=== PATIENT | male | born 1965 | race Caucasian/White ===

== ENCOUNTER 2018-01-09 12:50 | Inpatient (IN) | payer OTHER ==
[2018-01-09 14:37] VITALS: BMI 24.3
--- NOTE | 2018-01-09 16:04 | HP ---
Admission [facility] Chief Complaint: i need help to stop using heroin Allergies/Adverse Reactions: Allergies Allergy/AdvReac Type Severity Reaction Status Date / Time No Known Allergies Allergy Verified 01/09/18 15:37 History of Present Illness: this 52 years old male with heroin dependence seeking help, patient is on suboxone maintenance 8 mgs/2 mgs sl film last medicated 5 days ago patient has neuropathy on medication had fx of left foot treated at [facility] had splint on left foot and crutches had been in rehab discharged 01/04/18 Exam Limitations: No Limitations - Ebola screening Have you traveled outside of the country in the last 21 days: No Have you had contact with anyone from an Ebola affected area: No Have you been sick,other than usual withdrawal symptoms: No Do you have a fever: No - Review of Systems Constitutional: No Symptoms Reported EENT: reports: No Symptoms Reported Respiratory: reports: No Symptoms reported Cardiac: reports: No Symptoms Reported GI: reports: No Symptoms Reported Musculoskeletal: reports: No Symptoms Reported Integumentary: reports: No Symptoms Reported Neuro: reports: No Symptoms reported Endocrine: reports: No Symptoms Reported Hematology: reports: No Symptoms Reported Psychiatric: reports: No Sypmtoms Reported, Judgement Intact, Mood/Affect Appropiate, other (ptsd) Patient History - Patient Medical History Hx Anemia: No Hx Asthma: No Hx Chronic Obstructive Pulmonary Disease (COPD): No Hx Cancer: No Hx Cardiac Disorders: No Hx Congestive Heart Failure: No Hx Hypertension: No Hx Hypercholesterolemia: No Hx Pacemaker: No HX Cerebrovascular Accident: No Hx Seizures: No Hx Dementia: No Hx Diabetes: No Hx Gastrointestinal Disorders: No Hx Liver Disease: No Hx Genitourinary Disorders: No Hx Sexually Transmitted Disorders: No Hx Renal Disease (ESRD): No Hx Thyroid Disease: No Hx Human Immunodeficiency Virus (HIV): No (last 12/25 negative) Hx Hepatitis C: No Hx Depression: No Hx Suicide Attempt: No Hx Bipolar Disorder: No Hx Schizophrenia: No Other Medical History: ptsd,no suicidal,no homicidal - Patient Surgical History Past Surgical History: No - PPD History Previous Implant?: Yes Documented Results: Negative w/o proof Implanted On Prior [facility] Admission?: No PPD to be Administered?: Yes - Smoking Cessation Smoking history: Current every day smoker Have you smoked in the past 12 months: Yes Aproximately how many cigarettes per day: 20 Cigars Per Day: 0 Hx Chewing Tobacco Use: No Initiated information on smoking cessation: Yes 'Breaking Loose' booklet given: 01/09/18 - Substance & Tx. History Hx Alcohol Use: No Hx Substance Use: Yes Substance Use Type: Heroin Hx Substance Use Treatment: Yes (rehab dischrged 01/04/18) - Substances Abused Heroin Route: Injection Frequency: Daily Amount used: 8-9 bags Age of first use: 22 Date of Last Use: 01/08/18 Family Disease History - Family Disease History Family History: Denies Admission Physical Exam [facility] - Vital Signs Vital Signs: Vital Signs - 24 hr 01/09/18 14:29 Temperature 98 F Pulse Rate 92 H Respiratory 20 Rate Blood Pressure 118/58 - Physical General Appearance: Yes: Within Normal Limits HEENTM: Yes: Within Normal Limits, Normal ENT Inspection, BREANN Respiratory: Yes: Lungs Clear, Normal Breath Sounds, No Respiratory Distress Neck: Yes: Within Normal Limits, Supple, Trachea in good position Breast: Yes: Within Normal Limits Cardiology: Yes: Regular Rhythm, Regular Rate, S1, S2 Abdominal: Yes: Within Normal Limits, Normal Bowel Sounds, Non Tender, Flat, Soft Genitourinary: Yes: Within Normal Limits Back: Yes: Muscle Spasm Musculoskeletal: Yes: Back pain, Muscle Pain Extremities: Yes: Within Normal Limits (left foot in splint non weight bearing crutches walking) Neurological: Yes: emergency medical service coordinator II-XII NML intact, Fully Oriented, Alert, Motor Strength 5/5 Integumentary: Yes: Dry Lymphatic: Yes: Within Normal Limits - Diagnostic (1) Opioid dependence Current Visit: Yes Status: Acute (2) Encounter for monitoring Suboxone maintenance therapy Current Visit: Yes Status: Acute (3) Foot fracture, left Current Visit: Yes Status: Acute (4) Crutches as ambulation aid Current Visit: Yes Status: Acute (5) PTSD (post-traumatic stress disorder) Current Visit: Yes Status: Acute (6) Neuropathy Current Visit: Yes Status: Acute (7) Nicotine dependence Current Visit: Yes Status: Acute Cleared for Admission S - Detox or Rehab Claeared for Rehab Admission: Yes [facility] Breath Alcohol Content Breath Alcohol Content: 0 Urine Drug Screen - Results Drug Screen Negative: No Urine Drug Screen Results: OPI-Opiates, OXY-Oxycodone Inpatient Rehab Admission - Initial Determination Are CD services needed?: Yes Free of communicable disease: Yes Not in need of hospitalization: Yes - Rehab Admission Criteria Previous failed treatment: Yes Poor recovery environment: Yes Comorbidities: Yes Lacks judgement: No Patient is meeting Inpatient Rehab admission criteria:: Yes
[2018-01-09] MEDS ORDERED: LOPERAMIDE HCL 2 MG CAPSULE PO PRN (16:16)
[2018-01-09] MEDS ORDERED: hydrOXYzine PAMOATE 50 MG CAPSULE (FP) PO PRN (16:16)
[2018-01-09] MEDS ORDERED: P-EPHED 60MG/TRIPROLIDI 2.5MG TABLET PO PRN (16:16)
[2018-01-09] MEDS ORDERED: MAGNESIUM CITRATE 300 ML BOTTLE PO PRN (16:16)
[2018-01-09] MEDS ORDERED: MENTHOL/PHENOL 1 EACH UD MM PRN (16:16)
[2018-01-09] MEDS ORDERED: MAG HYDROX/AL HYDROX/SIMETH 30 ML UNIT-DOSE CUP PO PRN (16:16)
[2018-01-09] MEDS ORDERED: MAGNESIUM HYDROX 2400MG/30ML ORAL SUSPENSION 30 ML CUP PO PRN (16:16)
[2018-01-09] MEDS ORDERED: guaiFENesin/D-METHORPHAN HB 10 ML UNIT-DOSE CUPS PO PRN (16:16)
[2018-01-09] MEDS ORDERED: ACETAMINOPHEN 325 MG TABLET (FP) PO PRN (16:16)
[2018-01-09] MEDS ORDERED: TUBERCULIN PPD 5 TU/0.1ML VIAL ID ONE ×2 (19:07→22:24)
[2018-01-09] MEDS: GABAPENTIN 300 MG CAPSULE (FP) PO SCH ×2 (19:10→21:07)
[2018-01-09] MEDS: NICOTINE 21 MG/24 HOURS TOPICAL PATCH TD SCH (19:15)
[2018-01-09] MEDS: MIRTAZAPINE 15 MG TABLET (FP) PO SCH (21:06)
[2018-01-09] MEDS: THIAMINE HCL 100 MG TABLET (FP) PO SCH (21:07)
[2018-01-09] MEDS: cloNIDine HCL 0.1 MG TABLET PO SCH (21:44)
[2018-01-10] MEDS: GABAPENTIN 300 MG CAPSULE (FP) PO SCH ×3 (06:26→21:15)
[2018-01-10] MEDS: IBUPROFEN 400 MG TABLET (FP) PO PRN ×2 (06:26→13:04)
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
[2018-01-10] MEDS: NICOTINE 21 MG/24 HOURS TOPICAL PATCH TD SCH (10:09)
[2018-01-10] MEDS: cloNIDine HCL 0.1 MG TABLET PO SCH ×2 (10:09→21:15)
[2018-01-10] MEDS: PRENATAL VITAMINS W/ FOLIC ACID TABLET (FP) PO SCH (10:09)
[2018-01-10] MEDS: BUPRENORPHINE/NALOXONE 8 MG/2 MG FILM PACKET SL SCH (10:09)
[2018-01-10 16:02] LABS: HEMOGLOBIN 12.5 GM/dL (11.7-16.9); MCH 30.2 pg (25.7-33.7); MCHC 33.8 g/dl (32.0-35.9); MEAN CELL VOLUME 89.3 fl (80-96); MEAN PLT VOLUME 10.4 fl (7.5-11.1); PLATELET COUNT 167 K/MM3 (134-434); RBC 4.14 M/mm3 (4.00-5.60); RDW 13.6 % (11.9-15.9); WHITE BLOOD COUNT 6.4 K/mm3 (4.0-10.0)
[2018-01-10 16:32] LABS: CALCIUM 8.7 mg/dL (8.5-10.1); CHLORIDE 107 mmol/L (98-107); POTASSIUM 3.9 mmol/L (3.5-5.1); SODIUM 142 mmol/L (136-145)
[2018-01-10 16:39] LABS: ALBUMIN 3.5 g/dl (3.4-5.0); ALK PHOS 67 U/L (45-117); ANION GAP 7 (8-16); BILIRUBIN,TOTAL 1.8 mg/dL (0.2-1.0); BLOOD UREA NITROGEN 18 mg/dL (7-18); CO2 28 mmol/L (21-32); CREATININE 0.9 mg/dL (0.7-1.3); GLUCOSE,RANDOM 94 mg/dL (74-106); SGOT/AST 12 U/L (15-37); SGPT/ALT 17 U/L (12-78); TOT PROT 6.1 g/dl (6.4-8.2)
[2018-01-10] MEDS: MIRTAZAPINE 15 MG TABLET (FP) PO SCH (21:15)
[2018-01-10] MEDS: THIAMINE HCL 100 MG TABLET (FP) PO SCH (21:15)
[2018-01-11] MEDS: IBUPROFEN 400 MG TABLET (FP) PO PRN (06:19)
[2018-01-11] MEDS: GABAPENTIN 300 MG CAPSULE (FP) PO SCH ×3 (06:20→20:59)
--- NOTE | 2018-01-11 09:03 | EKG ---
Test Reason : Blood Pressure : / mmHG Vent. Rate : 085 BPM Atrial Rate : 085 BPM P-R Int : 138 ms QRS Dur : 096 ms QT Int : 388 ms P-R-T Axes : 065 077 059 degrees QTc Int : 461 ms NORMAL SINUS RHYTHM NORMAL ECG NO PREVIOUS ECGS AVAILABLE Confirmed by BRYAN HINKLE, CLAUDE ([id number]) on 01/11/2018 9:03:38 AM Referred By: Confirmed By:CLAUDE ADAMS MD
[2018-01-11] MEDS ORDERED: IBUPROFEN 600 MG TABLET (FP) PO PRN (09:55)
[2018-01-11] MEDS: NICOTINE 21 MG/24 HOURS TOPICAL PATCH TD SCH (10:04)
[2018-01-11] MEDS: BUPRENORPHINE/NALOXONE 8 MG/2 MG FILM PACKET SL SCH (10:04)
[2018-01-11] MEDS: cloNIDine HCL 0.1 MG TABLET PO SCH ×2 (10:04→20:59)
[2018-01-11] MEDS: PRENATAL VITAMINS W/ FOLIC ACID TABLET (FP) PO SCH (10:04)
[2018-01-11 19:21] LABS: URINE APPEARANCE CLEAR; URINE BILIRUBIN NEGATIVE (<2.0 mg/dL); URINE COLOR AMBER; URINE GLUCOSE (UA) NEGATIVE (NEGATIVE); URINE KETONE NEGATIVE (NEGATIVE); URINE LEUK ESTERASE NEGATIVE (NEGATIVE); URINE NITRITE NEGATIVE (NEGATIVE); URINE PROTEIN NEGATIVE (NEGATIVE); URINE UROBILINOGEN 4.0 E.U/dl mg/dL (0.2-1.0)
[2018-01-11] MEDS: THIAMINE HCL 100 MG TABLET (FP) PO SCH (20:59)
[2018-01-11] MEDS: MIRTAZAPINE 15 MG TABLET (FP) PO SCH (20:59)
[2018-01-12] MEDS: GABAPENTIN 300 MG CAPSULE (FP) PO SCH ×3 (06:03→21:05)
[2018-01-12] MEDS: PRENATAL VITAMINS W/ FOLIC ACID TABLET (FP) PO SCH (09:34)
[2018-01-12] MEDS: cloNIDine HCL 0.1 MG TABLET PO SCH ×2 (09:34→21:05)
[2018-01-12] MEDS: BUPRENORPHINE/NALOXONE 8 MG/2 MG FILM PACKET SL SCH (09:34)
[2018-01-12] MEDS: NICOTINE 21 MG/24 HOURS TOPICAL PATCH TD SCH (09:35)
[2018-01-12] MEDS: THIAMINE HCL 100 MG TABLET (FP) PO SCH (21:05)
[2018-01-12] MEDS: MIRTAZAPINE 15 MG TABLET (FP) PO SCH (21:05)
[2018-01-12] MEDS: MELATONIN 5 MG TABLETS PO PRN (21:07)
[2018-01-13] MEDS: GABAPENTIN 300 MG CAPSULE (FP) PO SCH ×3 (06:37→21:25)
[2018-01-13] MEDS: BUPRENORPHINE/NALOXONE 8 MG/2 MG FILM PACKET SL SCH (09:55)
[2018-01-13] MEDS: cloNIDine HCL 0.1 MG TABLET PO SCH ×2 (09:55→21:25)
[2018-01-13] MEDS: PRENATAL VITAMINS W/ FOLIC ACID TABLET (FP) PO SCH (09:55)
[2018-01-13] MEDS: NICOTINE 21 MG/24 HOURS TOPICAL PATCH TD SCH (09:55)
[2018-01-13] MEDS ORDERED: IBUPROFEN 400 MG TABLET (FP) PO PRN (19:58)
--- NOTE | 2018-01-13 20:06 | PN ---
[facility] Progress Note Note: Has a pre-existing (L) ankle injury prior to admission that was x-rayed and treated at [facility] ([phone]) on 01/08-07/28. Patient care form form [facility] indicates ankle fracture. C/o increased pain and swelling in (L) ankle. Half -Splint in place, (L) lower extremity, w/ peggy bandages which are very tight and leaving impressions on skin. Pedal and ankle (non-taut) edema of (L) foot. Pedal pulse (+). Superficial abrasion (L) jurado and ankle w/o drainage. Ecchymosis (L) ankle area. (+) toe wiggle. Limited ROM (L) ankle w/o crepitus but w/(+) tenderness. Plan: 1) Elevate (L) leg before lunch, before dinner, HS and prn 2) Ice pack to (L) foot and ankle area QID x 20 minutes each 3) Remove peggy wrap and apply bacitracin to skin abrasions daily 4) Notify provider of increased edema, increased pain, or decreased toe mobility. 5) Increase ibuprofen to 800 mg as prescribed for pain. 6) Continue use of cane and non-weight bearing of (L) ankle.
[2018-01-13] MEDS: MELATONIN 5 MG TABLETS PO PRN (21:25)
[2018-01-13] MEDS: MIRTAZAPINE 15 MG TABLET (FP) PO SCH (21:25)
[2018-01-13] MEDS: THIAMINE HCL 100 MG TABLET (FP) PO SCH (21:25)
[2018-01-14] MEDS: GABAPENTIN 300 MG CAPSULE (FP) PO SCH ×3 (06:34→21:05)
[2018-01-14] MEDS: BUPRENORPHINE/NALOXONE 8 MG/2 MG FILM PACKET SL SCH (09:55)
[2018-01-14] MEDS: cloNIDine HCL 0.1 MG TABLET PO SCH ×2 (09:55→21:05)
[2018-01-14] MEDS: NICOTINE 21 MG/24 HOURS TOPICAL PATCH TD SCH (09:55)
[2018-01-14] MEDS: BACITRACIN 0.9 GM PACKET TP SCH (09:55)
[2018-01-14] MEDS: PRENATAL VITAMINS W/ FOLIC ACID TABLET (FP) PO SCH (09:55)
[2018-01-14] MEDS: SELENIUM SULFIDE 2.5% LOTION 4 OZ. TP SCH (09:58)
[2018-01-14] MEDS: THIAMINE HCL 100 MG TABLET (FP) PO SCH (21:04)
[2018-01-14] MEDS: MIRTAZAPINE 15 MG TABLET (FP) PO SCH (21:05)
[2018-01-15] MEDS: GABAPENTIN 300 MG CAPSULE (FP) PO SCH ×3 (07:19→21:11)
[2018-01-15] MEDS ORDERED: PT OWN MED DRAWER 7, Y5N ONE ×2 (09:04→12:31)
[2018-01-15] MEDS: cloNIDine HCL 0.1 MG TABLET PO SCH ×2 (09:36→21:11)
[2018-01-15] MEDS: NICOTINE 21 MG/24 HOURS TOPICAL PATCH TD SCH (09:37)
[2018-01-15] MEDS: PRENATAL VITAMINS W/ FOLIC ACID TABLET (FP) PO SCH (09:37)
[2018-01-15] MEDS: BUPRENORPHINE/NALOXONE 8 MG/2 MG FILM PACKET SL SCH (09:37)
[2018-01-15] MEDS: BACITRACIN 0.9 GM PACKET TP SCH (09:37)
[2018-01-15] MEDS: SELENIUM SULFIDE 2.5% LOTION 4 OZ. TP SCH (09:38)
--- NOTE | 2018-01-15 13:32 | PN ---
Psychiatric Progress Note Vital Signs: Vital Signs Period Temp Pulse Resp BP Sys/Kuhn Pulse Ox Last 24 Hr 97.9 F 73-76 18-19 109-131/56-78 Date of Session: 01/15/18 Chief Complaint:: Discharge Note HPI: Patient addressing Opioid Dependence comorbid with Nicotine Dependence, Posttraumatic Stress Disorder, Subs-induced Anxiety Disorder and Substance- Induced Sleep Disorder ROS: Neuropathy, Frature left foot Current Medications: Active Medications Generic Name Dose Route Start Last Admin Trade Name Freq PRN Reason Stop Dose Admin Acetaminophen 650 mg 01/09/18 16:16 Tylenol - PO Q4H PRN FEVER Al Hydroxide/Mg Hydroxide 30 ml 01/09/18 16:16 Mylanta Oral Suspension - PO Q6H PRN DYSPEPSIA Bacitracin 0.9 gm 01/14/18 10:00 01/15/18 09:37 Bacitracin - TP 0.9 gm DAILY KEVIN Administration Buprenorphine/Naloxone 2 each 01/10/18 10:00 01/15/18 09:37 Suboxone 8mg/2mg Sl Film - SL 01/16/18 10:01 2 each DAILY KEVIN Administration Clonidine 0.1 mg 01/09/18 22:00 01/15/18 09:36 Catapres - PO 0.1 mg BID KEVIN Administration Eucalyptus/Menthol/Phenol/Sorbitol 1 each 01/09/18 16:16 Cepastat Lozenge - MM Q4H PRN SORE THROAT Gabapentin 600 mg 01/09/18 17:45 01/15/18 07:19 Neurontin - PO Not Given TID KEVIN Guaifenesin 10 ml 01/09/18 16:16 Robitussin Dm - PO Q6H PRN COUGH Hydroxyzine Pamoate 50 mg 01/09/18 16:16 Vistaril - PO Q4H PRN AGITATION Ibuprofen 800 mg 01/13/18 19:58 01/13/18 20:24 Motrin - PO 800 mg Q8H PRN Administration PAIN LEVEL 6-10 Loperamide HCl 4 mg 01/09/18 16:16 Imodium - PO Q6H PRN DIARRHEA Magnesium Citrate 300 ml 01/09/18 16:16 Citroma - PO Q48H PRN CONSTIPATION Magnesium Hydroxide 30 ml 01/09/18 16:16 Milk Of Magnesia - PO DAILY PRN CONSTIPATION Melatonin 5 mg 01/09/18 22:00 08/06/18 21:25 Melatonin PO 5 mg HS PRN Administration INSOMNIA Mirtazapine 45 mg 01/09/18 22:00 01/14/18 21:05 Remeron - PO 45 mg HS KEVIN Administration Nicotine 21 mg 01/09/18 18:00 01/15/18 09:37 Nicoderm Patch - TD Not Given DAILY KEVIN Multivit/Folic Acid/Iron 1 tab 01/10/18 10:00 01/15/18 09:37 Vitamins ([facility]) - PO 1 tab DAILY KEVIN Administration Pseudoephedrine/Triprolidine 1 combo 01/09/18 16:16 Actifed - PO TID PRN NASAL CONGESTION Selenium Sulfide 1 applic 01/14/18 10:00 01/15/18 09:38 Selsun 2.5% Lotion - TP 01/20/18 15:13 1 applic DAILY KEVIN Administration Thiamine HCl 100 mg 01/09/18 22:00 01/14/18 21:04 Vitamin B1 - PO Not Given HS KEVIN Current Side Effect: No Lab tests ordered: Yes Lab tests reviewed: Yes Provider note:: Patient will complete this program on 01/15/18. He has met his treatment goals and will continue to address his issues in [facility] residential treatment at [facility]. Told contract technical writer that from his participation in this program, he has learned the importance of surrounding himself with a sober support network in order to maintain abstinence. He responded well to Remeron 45 mg po HS. Script for that medication will be electronically transferred to [facility] at [address] [place] [address]. He is stable for discharge on 01/15/18 Total face to face time:: 35 Mental Status Exam - Mental Status Exam Alert and Oriented to: Time, Place, Person Cognitive Function: Fair Mood: Hopeful, Euthymic Affect: Appropriate Patient Behavior: Cooperative Speech Pattern: Clear Voice Loudness: Normal Thought Process: Intact, Goal Oriented Thought Disorder: Not Present Hallucinations: Denies Suicidal Ideation: Denies Homicidal Ideation: Denies Insight/Judgement: Fair Sleep: Fair Appetite: Good Muscle strength/Tone: Normal Gait/Station: Normal Psychiatric Treatment Plan - Problem List (1) Opioid dependence Current Visit: Yes (2) Nicotine dependence Current Visit: Yes (3) PTSD (post-traumatic stress disorder) Current Visit: Yes (4) Substance-induced anxiety disorder Current Visit: Yes (5) Substance-induced sleep disorder Current Visit: Yes (6) Foot fracture, left Current Visit: Yes Qualifiers: Encounter type: sequela Fracture type: closed Qualified Code(s): S92.902S - Unspecified fracture of left foot, sequela (7) Neuropathy Current Visit: Yes Initial treatment plan: Patient will be discharged tomorrow and referred to [facility] for [facility] residential treatment
[2018-01-15] MEDS: MIRTAZAPINE 15 MG TABLET (FP) PO SCH (21:10)
[2018-01-15] MEDS: MELATONIN 5 MG TABLETS PO PRN (21:10)
[2018-01-15] MEDS: THIAMINE HCL 100 MG TABLET (FP) PO SCH (21:10)
[2018-01-16] MEDS: GABAPENTIN 300 MG CAPSULE (FP) PO SCH (06:04)
[2018-01-16] MEDS ORDERED: PT OWN MED DRAWER 7, Y5N ONE ×2 (06:07→08:26)
[2018-01-16 06:45] VITALS: BP 117/80; PULSE 66; TEMP 97.6
== END 2018-01-16 08:32 | disposition home or self-care (01) | DRG 772 ==
LOC: YASAS 12:50 → Y3W 17:33
PROVIDERS: ADMIT Surgery; ATTEND Psychiatry & Neurology Psychiatry
PROC: HZ42ZZZ Group Counseling for Substance Abuse Treatment, Cognitive-Behavioral (ICD-10-PCS; principal; 2018-01-09)
DX: F11.20 Opioid dependence, uncomplicated (principal); F17.210 Nicotine dependence, cigarettes, uncomplicated; F43.10 Post-traumatic stress disorder, unspecified; F19.280 Other psychoactive substance dependence with psychoactive substance-induced anxiety disorder; F19.282 Other psychoactive substance dependence with psychoactive substance-induced sleep disorder; G62.9 Polyneuropathy, unspecified; S92.902S Unspecified fracture of left foot, sequela; X58.XXXS Exposure to other specified factors, sequela
CPT/HCPCS: 36415; 80053; 81003; 85027; 86593; 93005; 93010; J0735

== ENCOUNTER 2022-09-05 16:35 | Inpatient (IN) | payer OTHER ==
[2022-09-05 17:23] VITALS: BMI 28.5
[2022-09-05] MEDS ORDERED: NALOXONE HCL 0.4 MG/ML VIAL IM PRN (18:05)
[2022-09-05] MEDS ORDERED: POLYETHYLENE GLYCOL (HEALTHYLAX) 3350 17 GM PACKET PO PRN (18:05)
[2022-09-05] MEDS ORDERED: IBUPROFEN 600 MG TABLET (FP) PO PRN (18:05)
[2022-09-05] MEDS ORDERED: NICOTINE 10 MG CARTRIDGE (INHALER) IH PRN (18:05)
[2022-09-05] MEDS ORDERED: MAG HYDROX/AL HYDROX/SIMETH 30 ML UNIT-DOSE CUP PO PRN (18:05)
[2022-09-05] MEDS ORDERED: guaiFENesin 600 MG TABLET.ER (FP) PO PRN (18:05)
[2022-09-05] MEDS ORDERED: IBUPROFEN 400 MG TABLET (FP) PO PRN (18:05)
[2022-09-05] MEDS ORDERED: NALOXONE HCL (KLOXXADO) 8 MG SPRAY NS PRN (18:05)
[2022-09-05] MEDS ORDERED: LOPERAMIDE HCL 2 MG CAPSULE PO PRN (18:05)
[2022-09-05] MEDS ORDERED: ACETAMINOPHEN 325 MG TABLET (FP) PO PRN (18:05)
[2022-09-05] MEDS ORDERED: BENZOCAINE/MENTHOL (CHLORASEPTIC ) LOZENGE MM PRN (18:05)
[2022-09-05] MEDS ORDERED: MAGNESIUM HYDROX 2400MG/30ML ORAL SUSPENSION 30 ML CUP PO PRN (18:05)
[2022-09-05] MEDS ORDERED: BENZONATATE 200 MG CAPSULE PO PRN (18:05)
[2022-09-05] MEDS: THIAMINE HCL 100 MG TABLET (FP) PO SCH (22:05)
[2022-09-05] MEDS: MELATONIN 5 MG TABLETS PO SCH (22:05)
[2022-09-06] MEDS ORDERED: methaDONE HCL 40 MG DISPERSABLE TABLET PO SCH (07:30)
[2022-09-06] MEDS: methaDONE 40 MG, methaDONE 20 MG PO SCH (07:30)
[2022-09-06] MEDS ORDERED: ONDANSETRON *ODT* 4 MG TABLET SL PRN (09:42)
[2022-09-06] MEDS: PRENATAL VITAMINS W/ FOLIC ACID TABLET (FP) PO SCH (09:45)
[2022-09-06 11:35] LABS: HEMATOCRIT 31.2 % (35.4-49); HEMOGLOBIN 10.8 GM/dL (11.7-16.9); MCH 30.3 pg (25.7-33.7); MCHC 34.7 g/dl (32.0-35.9); MEAN CELL VOLUME 87.3 fl (80-96); PLATELET COUNT 149 10^3/uL (134-434); RBC 3.57 M/mm3 (4.00-5.60); RDW 14.5 % (11.9-15.9); WHITE BLOOD COUNT 4.4 K/mm3 (4.0-10.0)
[2022-09-06 11:56] LABS: ALBUMIN 3.5 g/dl (3.4-5.0); BLOOD UREA NITROGEN 26.3 mg/dL (7-18); CALCIUM 8.6 mg/dL (8.5-10.1)
[2022-09-06 11:59] LABS: CREATININE 1.1 mg/dL (0.55-1.3)
[2022-09-06 12:01] LABS: BILIRUBIN,TOTAL 1.4 mg/dL (0.2-1); TOT PROT 6.4 g/dl (6.4-8.2)
[2022-09-06 15:56] LABS: EPI CELLS 11 /uL (0-25.1); HYALINE CASTS 4 /uL (0-3.1); PH,URINE 5.5 (5.0-8.0); URINE APPEARANCE CLEAR; URINE BACTERIA 1073 /uL (0-1359); URINE BILIRUBIN 1+ (NEGATIVE); URINE COLOR ORANGE; URINE GLUCOSE (UA) NEGATIVE (NEGATIVE); URINE KETONE TRACE (NEGATIVE); URINE LEUK ESTERASE TRACE (NEGATIVE); URINE NITRITE NEGATIVE (NEGATIVE); URINE PROTEIN 1+ (NEGATIVE); URINE RBC 6 /uL (0-23.9); URINE WBC 17 /uL (0-25.8)
[2022-09-06] MEDS: MELATONIN 5 MG TABLETS PO SCH (21:13)
[2022-09-06] MEDS: THIAMINE HCL 100 MG TABLET (FP) PO SCH (21:13)
[2022-09-06] MEDS: QUEtiapine FUMARATE 200 MG TABLET PO SCH (21:14)
[2022-09-06] MEDS: MIRTAZAPINE 15 MG TABLET (FP) PO SCH (21:14)
[2022-09-06] MEDS: ATORVASTATIN CA 40 MG TABLET (FP) PO SCH (21:14)
[2022-09-06] MEDS: GABAPENTIN 300 MG CAPSULE PO SCH (21:14)
[2022-09-07] MEDS: methaDONE 40 MG, methaDONE 20 MG PO SCH ×2 (07:11→07:39)
[2022-09-07] MEDS ORDERED: POTASSIUM CHLORIDE TABS 20 MEQ TABLET.ER (FP) PO ONE (09:00)
[2022-09-07] MEDS: GABAPENTIN 300 MG CAPSULE PO SCH ×2 (10:42→21:07)
[2022-09-07] MEDS: PRENATAL VITAMINS W/ FOLIC ACID TABLET (FP) PO SCH (10:42)
[2022-09-07] MEDS: MIRTAZAPINE 15 MG TABLET (FP) PO SCH (21:07)
[2022-09-07] MEDS: QUEtiapine FUMARATE 200 MG TABLET PO SCH (21:07)
[2022-09-07] MEDS: ATORVASTATIN CA 40 MG TABLET (FP) PO SCH (21:07)
[2022-09-07] MEDS: THIAMINE HCL 100 MG TABLET (FP) PO SCH (21:07)
[2022-09-07] MEDS: MELATONIN 5 MG TABLETS PO SCH (21:07)
[2022-09-08] MEDS: methaDONE 40 MG, methaDONE 20 MG PO SCH (06:07)
[2022-09-08] MEDS: PRENATAL VITAMINS W/ FOLIC ACID TABLET (FP) PO SCH (09:41)
[2022-09-08] MEDS: GABAPENTIN 300 MG CAPSULE PO SCH ×2 (09:41→21:06)
[2022-09-08] MEDS: THIAMINE HCL 100 MG TABLET (FP) PO SCH (21:05)
[2022-09-08] MEDS: ATORVASTATIN CA 40 MG TABLET (FP) PO SCH (21:05)
[2022-09-08] MEDS: QUEtiapine FUMARATE 200 MG TABLET PO SCH (21:06)
[2022-09-08] MEDS: MIRTAZAPINE 15 MG TABLET (FP) PO SCH (21:06)
[2022-09-08] MEDS: MELATONIN 5 MG TABLETS PO SCH (21:06)
[2022-09-09] MEDS: hydrOXYzine PAMOATE 25 MG CAPSULE (FP) PO PRN ×2 (06:08→21:02)
[2022-09-09] MEDS: methaDONE 40 MG, methaDONE 20 MG PO SCH (06:08)
[2022-09-09] MEDS: PRENATAL VITAMINS W/ FOLIC ACID TABLET (FP) PO SCH (09:37)
[2022-09-09] MEDS: GABAPENTIN 300 MG CAPSULE PO SCH ×2 (09:37→21:01)
[2022-09-09] MEDS: THIAMINE HCL 100 MG TABLET (FP) PO SCH (21:00)
[2022-09-09] MEDS: MELATONIN 5 MG TABLETS PO SCH (21:01)
[2022-09-09] MEDS: ATORVASTATIN CA 40 MG TABLET (FP) PO SCH (21:01)
[2022-09-09] MEDS: MIRTAZAPINE 15 MG TABLET (FP) PO SCH (21:01)
[2022-09-09] MEDS: QUEtiapine FUMARATE 200 MG TABLET PO SCH (21:01)
[2022-09-10] MEDS: methaDONE 40 MG, methaDONE 20 MG PO SCH (06:18)
[2022-09-10] MEDS: hydrOXYzine PAMOATE 25 MG CAPSULE (FP) PO PRN ×2 (06:18→21:11)
[2022-09-10] MEDS: GABAPENTIN 300 MG CAPSULE PO SCH ×2 (10:26→21:11)
[2022-09-10] MEDS: PRENATAL VITAMINS W/ FOLIC ACID TABLET (FP) PO SCH (10:26)
[2022-09-10] MEDS: MELATONIN 5 MG TABLETS PO SCH (21:10)
[2022-09-10] MEDS: THIAMINE HCL 100 MG TABLET (FP) PO SCH (21:10)
[2022-09-10] MEDS: MIRTAZAPINE 15 MG TABLET (FP) PO SCH (21:11)
[2022-09-10] MEDS: QUEtiapine FUMARATE 200 MG TABLET PO SCH (21:11)
[2022-09-10] MEDS: ATORVASTATIN CA 40 MG TABLET (FP) PO SCH (21:11)
[2022-09-11] MEDS: methaDONE 40 MG, methaDONE 20 MG PO SCH (06:30)
[2022-09-11] MEDS: hydrOXYzine PAMOATE 25 MG CAPSULE (FP) PO PRN ×2 (06:31→21:45)
[2022-09-11] MEDS: GABAPENTIN 300 MG CAPSULE PO SCH ×2 (09:36→21:45)
[2022-09-11] MEDS: PRENATAL VITAMINS W/ FOLIC ACID TABLET (FP) PO SCH (09:36)
[2022-09-11] MEDS: FERROUS SO4 325 MG TABLET (FP) PO SCH (13:10)
[2022-09-11 15:35] LABS: ALBUMIN 3.8 g/dl (3.4-5.0); BLOOD UREA NITROGEN 22.5 mg/dL (7-18); CALCIUM 9.7 mg/dL (8.5-10.1)
[2022-09-11 15:40] LABS: BILIRUBIN,TOTAL 0.9 mg/dL (0.2-1); TOT PROT 7.2 g/dl (6.4-8.2)
[2022-09-11] MEDS: ATORVASTATIN CA 40 MG TABLET (FP) PO SCH (21:45)
[2022-09-11] MEDS: MELATONIN 5 MG TABLETS PO SCH (21:45)
[2022-09-11] MEDS: THIAMINE HCL 100 MG TABLET (FP) PO SCH (21:45)
[2022-09-11] MEDS: MIRTAZAPINE 15 MG TABLET (FP) PO SCH (21:45)
[2022-09-11] MEDS: QUEtiapine FUMARATE 200 MG TABLET PO SCH (21:45)
[2022-09-12] MEDS: methaDONE 40 MG, methaDONE 20 MG PO SCH (06:08)
[2022-09-12] MEDS: hydrOXYzine PAMOATE 25 MG CAPSULE (FP) PO PRN ×2 (06:09→21:07)
[2022-09-12] MEDS: FERROUS SO4 325 MG TABLET (FP) PO SCH (09:38)
[2022-09-12] MEDS: PRENATAL VITAMINS W/ FOLIC ACID TABLET (FP) PO SCH (09:38)
[2022-09-12] MEDS: GABAPENTIN 300 MG CAPSULE PO SCH ×2 (09:38→21:07)
[2022-09-12] MEDS: ATORVASTATIN CA 40 MG TABLET (FP) PO SCH (21:07)
[2022-09-12] MEDS: MELATONIN 5 MG TABLETS PO SCH (21:07)
[2022-09-12] MEDS: MIRTAZAPINE 15 MG TABLET (FP) PO SCH (21:07)
[2022-09-12] MEDS: THIAMINE HCL 100 MG TABLET (FP) PO SCH (21:07)
[2022-09-12] MEDS: QUEtiapine FUMARATE 200 MG TABLET PO SCH (21:07)
[2022-09-13] MEDS: methaDONE 40 MG, methaDONE 20 MG PO SCH (06:09)
[2022-09-13] MEDS: hydrOXYzine PAMOATE 25 MG CAPSULE (FP) PO PRN ×2 (06:10→21:00)
[2022-09-13] MEDS: PRENATAL VITAMINS W/ FOLIC ACID TABLET (FP) PO SCH (09:43)
[2022-09-13] MEDS: FERROUS SO4 325 MG TABLET (FP) PO SCH (09:43)
[2022-09-13] MEDS: GABAPENTIN 300 MG CAPSULE PO SCH ×2 (09:43→21:00)
[2022-09-13] MEDS: THIAMINE HCL 100 MG TABLET (FP) PO SCH (20:59)
[2022-09-13] MEDS: MELATONIN 5 MG TABLETS PO SCH (20:59)
[2022-09-13] MEDS: MIRTAZAPINE 15 MG TABLET (FP) PO SCH (21:00)
[2022-09-13] MEDS: ATORVASTATIN CA 40 MG TABLET (FP) PO SCH (21:00)
[2022-09-13] MEDS: QUEtiapine FUMARATE 200 MG TABLET PO SCH (21:00)
[2022-09-14] MEDS: hydrOXYzine PAMOATE 25 MG CAPSULE (FP) PO PRN ×2 (06:05→21:01)
[2022-09-14] MEDS: methaDONE 40 MG, methaDONE 20 MG PO SCH (06:05)
[2022-09-14] MEDS: PRENATAL VITAMINS W/ FOLIC ACID TABLET (FP) PO SCH (10:12)
[2022-09-14] MEDS: GABAPENTIN 300 MG CAPSULE PO SCH ×2 (10:12→21:01)
[2022-09-14] MEDS: FERROUS SO4 325 MG TABLET (FP) PO SCH (10:12)
[2022-09-14] MEDS: THIAMINE HCL 100 MG TABLET (FP) PO SCH (21:00)
[2022-09-14] MEDS: MELATONIN 5 MG TABLETS PO SCH (21:00)
[2022-09-14] MEDS: QUEtiapine FUMARATE 200 MG TABLET PO SCH (21:01)
[2022-09-14] MEDS: ATORVASTATIN CA 40 MG TABLET (FP) PO SCH (21:01)
[2022-09-14] MEDS: MIRTAZAPINE 15 MG TABLET (FP) PO SCH (21:01)
[2022-09-15] MEDS: methaDONE 40 MG, methaDONE 20 MG PO SCH (06:23)
[2022-09-15] MEDS: hydrOXYzine PAMOATE 25 MG CAPSULE (FP) PO PRN ×2 (06:24→21:06)
[2022-09-15] MEDS: FERROUS SO4 325 MG TABLET (FP) PO SCH (09:42)
[2022-09-15] MEDS: PRENATAL VITAMINS W/ FOLIC ACID TABLET (FP) PO SCH (09:42)
[2022-09-15] MEDS: GABAPENTIN 300 MG CAPSULE PO SCH ×2 (09:42→21:06)
[2022-09-15] MEDS: QUEtiapine FUMARATE 200 MG TABLET PO SCH (21:06)
[2022-09-15] MEDS: MELATONIN 5 MG TABLETS PO SCH (21:06)
[2022-09-15] MEDS: MIRTAZAPINE 15 MG TABLET (FP) PO SCH (21:06)
[2022-09-15] MEDS: ATORVASTATIN CA 40 MG TABLET (FP) PO SCH (21:07)
[2022-09-15] MEDS: THIAMINE HCL 100 MG TABLET (FP) PO SCH (21:07)
[2022-09-16] MEDS: methaDONE 40 MG, methaDONE 20 MG PO SCH (06:29)
[2022-09-16] MEDS: hydrOXYzine PAMOATE 25 MG CAPSULE (FP) PO PRN ×2 (06:30→20:59)
[2022-09-16] MEDS: FERROUS SO4 325 MG TABLET (FP) PO SCH (09:58)
[2022-09-16] MEDS: PRENATAL VITAMINS W/ FOLIC ACID TABLET (FP) PO SCH (09:59)
[2022-09-16] MEDS: GABAPENTIN 300 MG CAPSULE PO SCH ×2 (09:59→20:59)
[2022-09-16] MEDS: THIAMINE HCL 100 MG TABLET (FP) PO SCH (20:59)
[2022-09-16] MEDS: ATORVASTATIN CA 40 MG TABLET (FP) PO SCH (20:59)
[2022-09-16] MEDS: QUEtiapine FUMARATE 200 MG TABLET PO SCH (20:59)
[2022-09-16] MEDS: MIRTAZAPINE 15 MG TABLET (FP) PO SCH (20:59)
[2022-09-16] MEDS: MELATONIN 5 MG TABLETS PO SCH (20:59)
[2022-09-17] MEDS: methaDONE 40 MG, methaDONE 20 MG PO SCH (06:16)
[2022-09-17] MEDS: hydrOXYzine PAMOATE 25 MG CAPSULE (FP) PO PRN (06:17)
[2022-09-17 06:47] VITALS: BP 132/87; PULSE 100; RESP 18; TEMP 97.1
== END 2022-09-17 08:48 | disposition home or self-care (01) | DRG 772 ==
LOC: YASAS 16:35 → Y3E 20:38
PROVIDERS: ADMIT Allergy & Immunology; ATTEND Psychiatry & Neurology Pain Medicine
PROC: HZ42ZZZ Group Counseling for Substance Abuse Treatment, Cognitive-Behavioral (ICD-10-PCS; principal; 2022-09-05)
DX: F11.20 Opioid dependence, uncomplicated (principal); F14.20 Cocaine dependence, uncomplicated; F17.210 Nicotine dependence, cigarettes, uncomplicated; F31.9 Bipolar disorder, unspecified; F19.282 Other psychoactive substance dependence with psychoactive substance-induced sleep disorder; F19.280 Other psychoactive substance dependence with psychoactive substance-induced anxiety disorder; F41.9 Anxiety disorder, unspecified; F43.10 Post-traumatic stress disorder, unspecified; G62.9 Polyneuropathy, unspecified; D64.9 Anemia, unspecified; E87.6 Hypokalemia; E78.5 Hyperlipidemia, unspecified; M54.50 Low back pain, unspecified; G89.29 Other chronic pain; Z28.310 Unvaccinated for COVID-19; Z28.9 Immunization not carried out for unspecified reason
CPT/HCPCS: 36415; 80053; 81003; 82962; 83036; 85027; 86780; 86803; C9803-CS; Q0162; U0003; U0005

== ENCOUNTER 2024-06-27 16:20 | Inpatient (IN) | payer OTHER ==
[2024-06-27] MEDS ORDERED: BENZONATATE 200 MG CAPSULE PO PRN (17:16)
[2024-06-27] MEDS ORDERED: ONDANSETRON *ODT* 4 MG TABLET SL PRN (17:16)
[2024-06-27] MEDS ORDERED: NICOTINE POLACRILEX 2 MG GUM BUC PRN (17:16)
[2024-06-27] MEDS ORDERED: ACETAMINOPHEN 325 MG TABLET (FP) PO PRN (17:16)
[2024-06-27] MEDS ORDERED: NALOXONE (NARCAN) HCL 4 MG/0.1 ML SPRAY NS PRN (17:16)
[2024-06-27] MEDS ORDERED: BISMUTH SUBSALICYLATE 524 MG/30 ML PO PRN (17:16)
[2024-06-27] MEDS ORDERED: MAGNESIUM HYDROX 2400MG/30ML ORAL SUSPENSION 30 ML CUP PO PRN (17:16)
[2024-06-27] MEDS ORDERED: POLYETHYLENE GLYCOL (HEALTHYLAX) 3350 17 GM PACKET PO PRN (17:16)
[2024-06-27] MEDS ORDERED: MAG HYDROX/AL HYDROX/SIMETH 30 ML UNIT-DOSE CUP PO PRN (17:16)
[2024-06-27] MEDS ORDERED: LOPERAMIDE HCL 2 MG CAPSULE PO PRN (17:16)
[2024-06-27] MEDS ORDERED: DICYCLOMINE HCL 10 MG CAPSULE PO PRN (17:16)
[2024-06-27] MEDS ORDERED: IBUPROFEN 400 MG TABLET (FP) PO PRN (17:16)
[2024-06-27] MEDS ORDERED: METHOCARBAMOL 500 MG TABLET PO PRN (17:16)
[2024-06-27] MEDS ORDERED: guaiFENesin 600 MG TABLET.ER (FP) PO PRN (17:16)
[2024-06-27] MEDS ORDERED: BENZOCAINE/MENTHOL (CHLORASEPTIC ) LOZENGE MM PRN (17:16)
[2024-06-27] MEDS ORDERED: hydrOXYzine PAMOATE 25 MG CAPSULE (FP) PO PRN (17:16)
[2024-06-27] MEDS ORDERED: IBUPROFEN 600 MG TABLET (FP) PO PRN (17:16)
[2024-06-27 18:03] VITALS: BMI 27.6
[2024-06-27] MEDS ORDERED: DOXYCYCLINE HYCLATE 100 MG CAPSULE PO SCH (21:30)
[2024-06-27] MEDS: THIAMINE 100 MG TABLET PO SCH (21:42)
[2024-06-27] MEDS: MELATONIN 5 MG TABLETS PO SCH (21:42)
[2024-06-27] MEDS: AMOX TR/POT CLAV 875MG/125MG TABLETS (FP) PO SCH (21:42)
[2024-06-27] MEDS: GABAPENTIN 300 MG CAPSULE PO SCH (22:16)
[2024-06-27] MEDS: MIRTAZAPINE 15 MG TABLET (FP) PO ONE (22:16)
[2024-06-28 09:40] LABS: HEMATOCRIT 30.9 % (35.4-49); HEMOGLOBIN 10.3 GM/dL (11.7-16.9); MCHC 33.3 g/dl (32.0-35.9); MEAN CELL VOLUME 90.1 fl (80-96); MEAN PLT VOLUME 9.8 fl (7.5-11.1); PLATELET COUNT 179 10^3/uL (134-434); RBC 3.43 M/mm3 (4.00-5.60); RDW 13.4 % (11.9-15.9); WHITE BLOOD COUNT 5.5 K/mm3 (4.0-10.0)
[2024-06-28 09:48] LABS: POTASSIUM 3.8 mmol/L (3.5-5.1)
[2024-06-28 10:18] LABS: CALCIUM 9.4 mg/dL (8.5-10.1)
[2024-06-28 10:19] LABS: ALBUMIN 3.3 g/dl (3.4-5.0)
[2024-06-28 10:22] LABS: CREATININE 1.4 mg/dL (0.55-1.3)
[2024-06-28 10:23] LABS: TOT PROT 6.4 g/dl (6.4-8.2)
[2024-06-28] MEDS: methaDONE 80 MG, methaDONE 10 MG PO SCH (10:55)
[2024-06-28] MEDS: diazePAM 5 MG TABLET PO SCH (10:57)
[2024-06-28] MEDS: PRENATAL VITAMINS W/ FOLIC ACID TABLET (FP) PO SCH (10:58)
[2024-06-28] MEDS: TAMSULOSIN HCL 0.4 MG CAP PO SCH (10:58)
[2024-06-28] MEDS: CHOLECALCIFEROL (VIT D3) 1,000 UNIT (25 MCG) TABLET PO SCH (10:58)
[2024-06-28] MEDS: DOXYCYCLINE HYCLATE 100 MG CAPSULE PO SCH (10:58)
[2024-06-28] MEDS: NICOTINE 14 MG/24 HOURS TOPICAL PATCH TD SCH (11:00)
[2024-06-28] MEDS: methaDONE HCL 10 MG TABLET PO SCH (12:00)
[2024-06-28] MEDS: FENOFIBRIC ACID 135 MG CAP PO SCH (12:43)
[2024-06-28] MEDS: diazePAM 5 MG TABLET PO PRN (14:40)
[2024-06-28] MEDS: QUEtiapine FUMARATE 50 MG TABLET PO SCH (22:03)
[2024-06-28] MEDS: MIRTAZAPINE 15 MG TABLET (FP) PO SCH (22:03)
[2024-06-28] MEDS: ATORVASTATIN CA 40 MG TABLET (FP) PO SCH (22:03)
[2024-06-29 10:39] LABS: POTASSIUM 3.4 mmol/L (3.5-5.1)
[2024-06-29 10:40] LABS: CALCIUM 9.4 mg/dL (8.5-10.1)
[2024-06-29 10:41] LABS: BLOOD UREA NITROGEN 18.7 mg/dL (7-18)
[2024-06-29 10:45] LABS: CREATININE 1.2 mg/dL (0.55-1.3)
[2024-06-29] MEDS: POTASSIUM CHLORIDE ORAL LIQUID 20 MEQ/15 ML PO ONE (14:39)
[2024-06-30] MEDS: diazePAM 5 MG TABLET PO SCH (05:54)
[2024-06-30 13:11] LABS: POTASSIUM 4.7 mmol/L (3.5-5.1)
[2024-06-30 13:18] LABS: CALCIUM 10.4 mg/dL (8.5-10.1)
[2024-06-30 13:23] LABS: BLOOD UREA NITROGEN 16.6 mg/dL (7-18)
[2024-06-30 13:24] LABS: CREATININE 1.2 mg/dL (0.55-1.3)
[2024-06-30] MEDS: DOXYCYCLINE HYCLATE 100 MG TABLET PO SCH (18:50)
[2024-07-01] MEDS: diazePAM 5 MG TABLET PO SCH (05:42)
[2024-07-02] MEDS: diazePAM 5 MG TABLET PO ONE (05:52)
[2024-07-02 06:30] VITALS: RESP 16
[2024-07-02 10:01] VITALS: BP 96/60; PULSE 74; TEMP 97.7
== END 2024-07-02 12:50 | disposition other institution (70) | DRG 773 ==
LOC: YASAS 16:20 → Y3N 20:27
PROVIDERS: ADMIT Allergy & Immunology; ATTEND Allergy & Immunology
PROC: HZ2ZZZZ Detoxification Services for Substance Abuse Treatment (ICD-10-PCS; principal; 2024-06-27)
DX: F13.230 Sedative, hypnotic or anxiolytic dependence with withdrawal, uncomplicated (principal); F11.10 Opioid abuse, uncomplicated; F17.210 Nicotine dependence, cigarettes, uncomplicated; F19.282 Other psychoactive substance dependence with psychoactive substance-induced sleep disorder; F19.24 Other psychoactive substance dependence with psychoactive substance-induced mood disorder; E87.6 Hypokalemia; G62.9 Polyneuropathy, unspecified; J18.9 Pneumonia, unspecified organism; M54.50 Low back pain, unspecified; G89.29 Other chronic pain; N40.0 Benign prostatic hyperplasia without lower urinary tract symptoms; Z56.0 Unemployment, unspecified; Z59.00 Homelessness unspecified
CPT/HCPCS: 36415; 71046-TC-FY; 80048; 80053; 80305; 80307; 85027; 86780; 87811; 93005; 93010

== ENCOUNTER 2024-07-02 13:01 | Inpatient (IN) | payer OTHER ==
[2024-07-02] MEDS ORDERED: NALOXONE (NARCAN) HCL 4 MG/0.1 ML SPRAY NS PRN (15:27)
[2024-07-02] MEDS ORDERED: NALOXONE HCL 0.4 MG/ML VIAL IVPUSH PRN (15:27)
[2024-07-02] MEDS ORDERED: BENZOCAINE/MENTHOL (CHLORASEPTIC ) LOZENGE MM PRN (15:27)
[2024-07-02] MEDS ORDERED: BENZONATATE 200 MG CAPSULE PO PRN (15:27)
[2024-07-02] MEDS ORDERED: guaiFENesin 600 MG TABLET.ER (FP) PO PRN (15:27)
[2024-07-02] MEDS ORDERED: LOPERAMIDE HCL 2 MG CAPSULE PO PRN (15:27)
[2024-07-02] MEDS ORDERED: IBUPROFEN 400 MG TABLET (FP) PO PRN (15:27)
[2024-07-02] MEDS ORDERED: IBUPROFEN 600 MG TABLET (FP) PO PRN (15:27)
[2024-07-02] MEDS ORDERED: ACETAMINOPHEN 325 MG TABLET (FP) PO PRN (15:27)
[2024-07-02] MEDS: ATORVASTATIN CA 40 MG TABLET (FP) PO SCH (22:57)
[2024-07-02] MEDS: MELATONIN 5 MG TABLETS PO SCH (22:57)
[2024-07-02] MEDS: GABAPENTIN 300 MG CAPSULE PO SCH (22:57)
[2024-07-02] MEDS: THIAMINE 100 MG TABLET PO SCH (22:57)
[2024-07-02] MEDS: hydrOXYzine PAMOATE 25 MG CAPSULE (FP) PO PRN (22:58)
[2024-07-02] MEDS: METHOCARBAMOL 500 MG TABLET PO PRN (23:27)
[2024-07-03] MEDS ORDERED: methaDONE HCL 10 MG TABLET PO SCH (07:00)
[2024-07-03] MEDS: methaDONE 80 MG, methaDONE 10 MG PO ONE (07:12)
[2024-07-03] MEDS: TAMSULOSIN HCL 0.4 MG CAP PO SCH (07:42)
[2024-07-03] MEDS: CHOLECALCIFEROL (VIT D3) 1,000 UNIT (25 MCG) TABLET PO SCH (12:04)
[2024-07-03] MEDS: FENOFIBRIC ACID 135 MG CAP PO SCH (12:04)
[2024-07-03] MEDS: PRENATAL VITAMINS W/ FOLIC ACID TABLET (FP) PO SCH (12:05)
[2024-07-03] MEDS: QUEtiapine FUMARATE 50 MG TABLET PO SCH (21:07)
[2024-07-03] MEDS: MIRTAZAPINE 15 MG TABLET (FP) PO SCH (21:07)
[2024-07-04] MEDS: methaDONE 80 MG, methaDONE 10 MG PO SCH (06:35)
[2024-07-05] MEDS ORDERED: QUEtiapine FUMARATE 25 MG TABLET ONE (19:27)
[2024-07-10] MEDS ORDERED: methaDONE HCL 10 MG TABLET PO SCH (06:00)
[2024-07-10] MEDS: methaDONE 80 MG, methaDONE 10 MG PO SCH (06:09)
[2024-07-12] MEDS: POLYETHYLENE GLYCOL (HEALTHYLAX) 3350 17 GM PACKET PO PRN (13:09)
[2024-07-13] MEDS: MAGNESIUM HYDROX 2400MG/30ML ORAL SUSPENSION 30 ML CUP PO PRN (09:47)
[2024-07-15] MEDS: DOCUSATE SODIUM 100 MG CAPSULE (FP) PO SCH (12:41)
[2024-07-15] MEDS: LACTULOSE 20 GM/30 ML UDC (FOR ORAL USE ONLY) PO PRN (12:41)
[2024-07-19] MEDS: MAG HYDROX/AL HYDROX/SIMETH 30 ML UNIT-DOSE CUP PO PRN (09:04)
[2024-07-19] MEDS ORDERED: QUEtiapine FUMARATE 25 MG TABLET ONE (19:26)
[2024-07-23 06:37] VITALS: RESP 16
[2024-07-26] MEDS ORDERED: QUEtiapine FUMARATE 25 MG TABLET ONE (20:23)
[2024-07-28 06:35] VITALS: BP 111/78; PULSE 81; TEMP 97.9
== END 2024-07-28 16:00 | disposition home or self-care (01) | DRG 772 ==
LOC: YASAS 13:01 → Y3NR 13:03 → Y3E 07-03 10:46
PROVIDERS: ADMIT Psychiatry & Neurology Pain Medicine; ATTEND Psychiatry & Neurology Pain Medicine
PROC: HZ42ZZZ Group Counseling for Substance Abuse Treatment, Cognitive-Behavioral (ICD-10-PCS; principal; 2024-07-02)
DX: F11.20 Opioid dependence, uncomplicated (principal); F13.20 Sedative, hypnotic or anxiolytic dependence, uncomplicated; F17.210 Nicotine dependence, cigarettes, uncomplicated; F31.9 Bipolar disorder, unspecified; F41.9 Anxiety disorder, unspecified; F43.10 Post-traumatic stress disorder, unspecified; E78.5 Hyperlipidemia, unspecified
CPT/HCPCS: 36415; 86803